=== PATIENT | female | born 1955 | race Caucasian/White ===

== ENCOUNTER 2017-08-29 10:52 | Emergency (ER) | payer OTHER ==
[~2017-08-29] VITALS: Ht 157.5 cm; Wt 65.5 kg
[2017-08-29 11:05] VITALS: Ht 157.5 cm; Wt 65.5 kg
[2017-08-29] MEDS ORDERED: TRAM50TA2 PO (14:18)
[2017-08-29 14:50] VITALS: BP 155/76; PULSE 74; RESP 16; TEMP 98.2
--- NOTE | 2017-08-29 15:32 | ERD ---
ER Documentation Chief Complaint Date/Time DATE: 08/29/17 TIME: 15:27 Chief Complaint RIGHT ARM PAIN DUE TO NERVE PAIN, HX OF DIABETES HPI 62-year-old female complaining of pain to her right arm. Patient states that one week ago she was lifting a heavy jug of water and developed weakness and pain to her right bicep. Patient states ever since she has felt weakness to her right bicep. She has been seen at an outside ER and had x-rays done. X- rays are within normal limits. Patient has not taken medications for pain. She is right-hand dominant. Denies any neck pain. Medical history is diabetes. NKDA. ROS All systems reviewed and are negative except as per history of present illness. Medications Home Meds Active Scripts Tramadol HCl (Tramadol HCl) 50 Mg Tablet, 50 MG PO Q4 Y for PAIN, #20 TAB Prov:EDWINA STONE PA-C 08/29/17 PMhx/Soc History of Surgery: No Anesthesia Reaction: No Hx Neurological Disorder: No Hx Respiratory Disorders: No Hx Cardiac Disorders: No Hx Psychiatric Problems: No Hx Miscellaneous Medical Probl: No Hx Alcohol Use: No Hx Substance Use: No Hx Tobacco Use: No Physical Exam Vitals Vital Signs Date Time Temp Pulse Resp B/P Pulse Ox O2 Delivery O2 Flow Rate FiO2 08/29/17 14:50 98.2 74 16 155/76 100 Room Air 08/29/17 11:05 98.1 100 18 158/82 100 Physical Exam GENERAL: The patient is well-appearing, well-nourished, in no acute distressno cervical lymphadenopathy. No JVD. No bruits. No goiter. CHEST: Clear to auscultation bilaterally. There are no rales, wheezes or rhonchi. HEART: Regular rate and rhythm. No murmurs, clicks, rubs or gallops. No S3 or S4. EXTREMITIES: Equal pulses bilaterally. There is no peripheral clubbing, cyanosis or edema. No focal swelling or erythema. Decreased ROM to right upper extremity. balled up mass in right distal arm. grossly neurovascularly intact. NEUROLOGIC: Alert and oriented. Motor strength in all 4 extremities with 5 out of 5 strength. Sensation grossly intact. Normal speech and gait. SKIN: There is no apparent rash or petechiae. The skin is warm and dry. Procedures/MDM ER Course: Sling applied to right upper extremity MDM: 62-year-old female complaining of weakness to right arm. I have concern for possible partial biceps tendon rupture. Low suspicion for acute fracture dislocation. Patient does not have acute traumatic injury. Patient acquires MRI but due to fact that imaging is not emergent and can be done on an outpatient basis. I have low suspicion for neurovascular deficit. Patient is able to move distal extremities and pulses are intact. Patient is recommended to follow-up with outpatient orthopedics and take medication for pain. I recommend patient to continue using her right upper extremity to prevent contractures or frozen joints. Patient is told if symptoms change or worsen to return the emergency room. Patient will follow-up with primary doctor. All questions answered at discharge. Departure Diagnosis: Primary Impression: Pain of right arm Condition: Stable Patient Instructions: Shoulder Exercises: Biceps Curl Referrals: [facility] [place] HAVE RECEIVED A MEDICAL SCREENING EXAM AND THE RESULTS INDICATE THAT YOU DO NOT HAVE A CONDITION THAT REQUIRES URGENT TREATMENT IN THE EMERGENCY DEPARTMENT. FURTHER EVALUATION AND TREATMENT OF YOUR CONDITION CAN WAIT UNTIL YOU ARE SEEN IN YOUR DOCTORS OFFICE WITHIN THE NEXT 1-2 DAYS. IT IS YOUR RESPONSIBILITY TO MAKE AN APPOINTMENT FOR FOLOW-UP CARE. IF YOU HAVE A PRIMARY DOCTOR --you should call your primary doctor and schedule and appointment IF YOU DO NOT HAVE A PRIMARY DOCTOR YOU CAN CALL OUR PHYSICIAN REFERRAL HOTLINE AT . IF YOU CAN NOT AFFORD TO SEE A PHYSICIAN YOU CAN CHOSE FROM THE FOLLOWING [facility] INSTITUTIONS[facility] [address] [place] [address] [facility] [address] [place] [address] [facility] [address] [place] [address] [facility] 7 a.m.- 11 p.m. Every Day of the Week NO APPOINTMENT OR AUTHORIZATION NEEDED SO [facility] Hours: Mon-Fri 9:00 AM - 5:00 PM Additional Instructions: FOLLOW UP WITH YOUR PRIMARY CARE PHYSICIAN TOMORROW.Return to this facility if you are not improving as expected. EDWINA STONE PA-C Aug 29, 2017 15:32
== END 2017-08-29 14:50 | disposition home or self-care (01) ==
LOC: FTE 10:52
DX: M79.601 Pain in right arm (principal)
CPT/HCPCS: 99283